=== PATIENT | female | born 1965 | race Caucasian/White ===

== ENCOUNTER 2024-09-20 07:31 | Inpatient (IN) | payer MEDICARE ==
[2024-09-20] MEDS ORDERED: Sodium Chloride 0.9% 10 ML Syringe FLUSH PRN (08:33)
[2024-09-20] MEDS: Lactated Ringers 1,000 ML IV SCH (08:43)
[2024-09-20] MEDS: Morphine 4 MG/ML VIAL IVPUSH ONE (08:47)
[2024-09-20] MEDS: Ondansetron 4 MG Tab.DIS PO ONE (08:49)
[2024-09-20 09:04] LABS: BASOPHILS ABSOLUTE AUTO 0.14 K/uL (0.02-0.10); BASOPHILS PERCENT AUTO 0.9 % (0.0-0.5); EOSINOPHILS ABSOLUTE AUTO 0.03 K/uL (0.04-0.40); EOSINOPHILS PERCENT AUTO 0.2 % (1.0-5.0); HEMATOCRIT 38.3 % (37.0-47.0); HEMOGLOBIN 12.7 g/dL (11.5-16.5); LYMPHOCYTES ABSOLUTE AUTO 1.61 K/uL (1.50-4.00); LYMPHOCYTES PERCENT AUTO 9.8 % (20.0-40.0); MEAN CORPUSCULAR HEMOGLOBIN 29.9 pg (27.0-32.0); MEAN CORPUSCULAR HGB CONC 33.2 g/dL (31.0-35.0); MEAN CORPUSCULAR VOLUME 90 fL (76-96); MONOCYTES ABSOLUTE AUTO 1.28 K/uL (0.20-0.80); MONOCYTES PERCENT AUTO 7.8 % (3.0-10.0); NEUTROPHILS ABSOLUTE AUTO 13.33 K/uL (2.00-7.50); NEUTROPHILS PERCENT AUTO 81.3 % (45.0-70.0); PLATELET COUNT,PLT 364 K/uL (150-500); RED BLOOD CELL COUNT 4.25 M/uL (3.80-5.80); RED CELL DISTRIBUTION WIDTH 13.3 % (11.0-16.0); WHITE BLOOD CELL COUNT,WBC 16.4 K/uL (4.0-11.0)
[2024-09-20 09:11] LABS: A/G RATIO 0.6 (0.8-2.0); ALBUMIN 2.9 g/dL (3.4-5.0); BUN/CREATININE RATIO 21.8 (6-25); CARBON DIOXIDE,CO2 30.1 mmol/L (21.0-32.0); CREATININE 1.01 mg/dL (0.55-1.02); EST CRCL DRUG DOSING (CG) 51.79 mL/min; POTASSIUM,K 5.5 mmol/L (3.5-5.1); PROTEIN TOTAL,TP 7.5 g/dL (6.4-8.2)
[2024-09-20 09:18] LABS: ANION GAP 13.4 mmol/L (5.0-15.0)
[2024-09-20 09:48] LABS: APPEARANCE,URINE CLEAR (CLEAR); COLOR,URINE YELLOW; PH,URINE 6.5 (5.0-8.0)
[2024-09-20 09:49] LABS: BILIRUBIN,URINE NEGATIVE (NEGATIVE); GLUCOSE,URINE >=1000 mg/dL (NEGATIVE); KETONES,URINE NEGATIVE (NEGATIVE); LEUKOCYTE ESTERASE,URINE NEGATIVE (NEGATIVE); NITRITE,URINE NEGATIVE (NEGATIVE); OCCULT BLOOD,URINE TRACE-INTACT (NEGATIVE); PROTEIN,URINE NEGATIVE (NEGATIVE)
[2024-09-20 09:50] LABS: RBC,URINE 0-5 /HPF; SQUAMOUS EPITHELIAL CELLS,UR FEW /HPF
[2024-09-20 09:53] LABS: HEMOGLOBIN A1C 13.2 % (< 5.7)
[2024-09-20 10:05] LABS: BILIRUBIN TOTAL 0.5 mg/dL (0.0-1.0)
[2024-09-20] MEDS: Insulin Regular, Human 100 Units/ML 3 ML Vial SUBCUT ONE (10:14)
[2024-09-20] MEDS: cefTRIAXone 1 GM Vial ONE (10:52)
[2024-09-20] MEDS: cefTRIAXone 1 GM in Sodium Chloride 0.9% 50 ML IV SCH (10:54)
[2024-09-20] MEDS ORDERED: Melatonin 3 MG Tab PO PRN (11:03)
[2024-09-20] MEDS ORDERED: Non-Formulary Medication 1 Each (Albuterol Sulfate [Proair Respiclick] 90 MCG Aer.Pow.Ba) IH PRN (11:26)
[2024-09-20] MEDS ORDERED: Glucagon,Human Recombinant 1 MG Vial IM PRN (16:47)
[2024-09-20] MEDS ORDERED: 50% Dextrose in Water 50 ML Syringe IVPUSH PRN (16:47)
[2024-09-20] MEDS: Insulin Regular, Human 100 Units/ML 3 ML Vial SUBCUT SCH (17:02)
[2024-09-20] MEDS: Acetaminophen 325 MG Tab PO PRN (17:14)
[2024-09-20] MEDS: Ondansetron 4 MG/2 ML SDV IV PRN (17:14)
[2024-09-20] MEDS ORDERED: Albuterol 6.7 GM Inhaler INH PRN (17:34)
[2024-09-20] MEDS: Acetaminophen 325 MG Tab ONE (18:43)
[2024-09-20] MEDS: Lactated Ringers 1,000 ML IV ONE (18:55)
[2024-09-20] MEDS: metroNIDAZOLE/Normal Saline 500 MG in Premix Bag 1 BAG IV SCH (19:09)
[2024-09-20] MEDS: Sertraline 50 MG Tab PO SCH (19:31)
[2024-09-20] MEDS: Formoterol/Mometasone 100-5 MCG 8.8 GM Inhaler INH SCH (19:31)
[2024-09-21] MEDS: Sodium Chloride 0.9% 1,000 ML IV SCH (00:06)
[2024-09-21 08:43] LABS: HEMATOCRIT 36.9 % (37.0-47.0); HEMOGLOBIN 12.3 g/dL (11.5-16.5); MEAN CORPUSCULAR HEMOGLOBIN 29.7 pg (27.0-32.0); MEAN CORPUSCULAR HGB CONC 33.3 g/dL (31.0-35.0); MEAN PLATELET VOLUME 9.9 fL (6.0-10.0); RED BLOOD CELL COUNT 4.14 M/uL (3.80-5.80); RED CELL DISTRIBUTION WIDTH 13.4 % (11.0-16.0)
[2024-09-21 08:50] LABS: WHITE BLOOD CELL COUNT,WBC 20.2 K/uL (4.0-11.0)
[2024-09-21 09:14] LABS: A/G RATIO 0.6 (0.8-2.0); ALBUMIN 2.4 g/dL (3.4-5.0); BILIRUBIN TOTAL 0.9 mg/dL (0.0-1.0); BUN/CREATININE RATIO 28.8 (6-25); C-REACTIVE PROTEIN 65.9 mg/L (<5.0); CALCIUM 8.2 mg/dL (8.5-10.1); CREATININE 0.8 mg/dL (0.55-1.02); EST CRCL DRUG DOSING (CG) 65.38 mL/min; MAGNESIUM 1.6 mg/dL (1.8-2.4); POTASSIUM,K 4.6 mmol/L (3.5-5.1); PROTEIN TOTAL,TP 6.2 g/dL (6.4-8.2)
[2024-09-21] MEDS: Bisacodyl 5 MG Tab PO SCH (09:14)
[2024-09-21] MEDS: Polyethylene Glycol 3350 Powder 17 GM Packet PO SCH (09:14)
[2024-09-21 09:26] LABS: ANION GAP 13.6 mmol/L (5.0-15.0)
[2024-09-21] MEDS: Ciprofloxacin in D5W 400 MG in Premix Bag 1 BAG IV ONE (10:53)
[2024-09-21] MEDS: Ciprofloxacin in D5W 200 ML ONE (11:23)
[2024-09-21] MEDS: Prochlorperazine 10 MG/2 ML SDV IVPUSH ONE (11:28)
== END 2024-09-21 12:17 | DRG 638 ==
LOC: LB.ED 07:31 → LB.MS 11:04
PROVIDERS: ADMIT Surgery; ATTEND Surgery
DX: E11.65 Type 2 diabetes mellitus with hyperglycemia (principal); K81.0 Acute cholecystitis; L03.312 Cellulitis of back [any part except buttock and flank]; Z90.710 Acquired absence of both cervix and uterus; Z88.8 Allergy status to other drugs, medicaments and biological substances; Z91.018 Allergy to other foods; Z79.51 Long term (current) use of inhaled steroids; Z79.899 Other long term (current) drug therapy
CPT/HCPCS: 36415; 74177; 80053; 81001; 82947; 83036; 83690; 83735; 85025; 85027; 86140; 96374; 99222; 99239; 99285-25; A9270-GY; J0696; J0744; J0780; J1836; J2270; J2405; J3490; J7030; J7120; Q0162; U0002

== ENCOUNTER 2024-10-15 17:42 | Emergency (ER) | payer MEDICARE ==
[2024-10-15] MEDS: Sodium Chloride 0.9% 1,000 ML IV ONE (19:25)
[2024-10-15] MEDS ORDERED: Naloxone 2 MG/2 ML Syringe IVPUSH PRN (19:32)
[2024-10-15] MEDS: Ondansetron 4 MG/2 ML SDV IVPUSH ONE (19:32)
[2024-10-15] MEDS: fentaNYL 100 MCG/2 ML SDV IVPUSH PRN (19:36)
[2024-10-15 19:53] LABS: BASOPHILS ABSOLUTE AUTO 0.06 K/uL (0.02-0.10); BASOPHILS PERCENT AUTO 0.7 % (0.0-0.5); EOSINOPHILS ABSOLUTE AUTO 0.11 K/uL (0.04-0.40); EOSINOPHILS PERCENT AUTO 1.2 % (1.0-5.0); HEMATOCRIT 40.6 % (37.0-47.0); LYMPHOCYTES ABSOLUTE AUTO 3.33 K/uL (1.50-4.00); LYMPHOCYTES PERCENT AUTO 37.6 % (20.0-40.0); MEAN CORPUSCULAR HEMOGLOBIN 28.4 pg (27.0-32.0); MEAN CORPUSCULAR VOLUME 89 fL (76-96); MEAN PLATELET VOLUME 9.8 fL (6.0-10.0); MONOCYTES ABSOLUTE AUTO 0.64 K/uL (0.20-0.80); MONOCYTES PERCENT AUTO 7.2 % (3.0-10.0); NEUTROPHILS ABSOLUTE AUTO 4.72 K/uL (2.00-7.50); NEUTROPHILS PERCENT AUTO 53.3 % (45.0-70.0); PLATELET COUNT,PLT 297 K/uL (150-500); RED BLOOD CELL COUNT 4.57 M/uL (3.80-5.80); RED CELL DISTRIBUTION WIDTH 15.7 % (11.0-16.0); WHITE BLOOD CELL COUNT,WBC 8.9 K/uL (4.0-11.0)
[2024-10-15] MEDS: fentaNYL 100 MCG/2 ML SDV ONE (19:55)
[2024-10-15 20:12] LABS: INR 1.2 (1.0-3.5); PTT,PARTIAL THROMBOPLSTIN TIME 21.9 SECONDS (24.4-33.2)
[2024-10-15 20:13] LABS: A/G RATIO 0.7 (0.8-2.0); ANION GAP 12.6 mmol/L (5.0-15.0); BILIRUBIN TOTAL 0.4 mg/dL (0.0-1.0); BUN/CREATININE RATIO 25.7 (6-25); CALCIUM 8.9 mg/dL (8.5-10.1); CARBON DIOXIDE,CO2 28.1 mmol/L (21.0-32.0); CREATININE 0.74 mg/dL (0.55-1.02); EST CRCL DRUG DOSING (CG) 70.68 mL/min; POTASSIUM,K 4.7 mmol/L (3.5-5.1); PROTEIN TOTAL,TP 7.6 g/dL (6.4-8.2); PROTHROMBIN TIME 12.1 sec (9.0-11.5)
[2024-10-15 20:16] LABS: MAGNESIUM 1.8 mg/dL (1.8-2.4); TROPONIN I HIGH SENSITIVITY 15.3 pg/ml (<=60.4)
[2024-10-15 20:26] LABS: INFLUENZA A NAA NEGATIVE (NEGATIVE); INFLUENZA B NAA NEGATIVE (NEGATIVE); RESPIRATORY SYNCYTIAL VIR NAA NEGATIVE (NEGATIVE)
[2024-10-15 20:28] LABS: CORONAVIRUS COVID-19 NAA POSITIVE (NEGATIVE)
[2024-10-15] MEDS ORDERED: Sodium Chloride 0.9% 10 ML Syringe FLUSH PRN (20:35)
[2024-10-15] MEDS ORDERED: Ondansetron 4 MG Tab.DIS ONE (21:00)
[2024-10-15] MEDS ORDERED: Magnesium Citrate Solution 296 ML Bottle ONE (21:00)
[2024-10-15] MEDS: Magnesium Citrate Solution 296 ML Bottle ONE (21:49)
== END 2024-10-15 21:33 | disposition home or self-care (01) ==
LOC: LB.ED 17:42
DX: U07.1 COVID-19 (principal); R10.11 Right upper quadrant pain; K59.00 Constipation, unspecified; I10 Essential (primary) hypertension; J45.909 Unspecified asthma, uncomplicated; E78.00 Pure hypercholesterolemia, unspecified; E11.9 Type 2 diabetes mellitus without complications; Z90.710 Acquired absence of both cervix and uterus; Z88.8 Allergy status to other drugs, medicaments and biological substances; Z79.51 Long term (current) use of inhaled steroids; Z79.899 Other long term (current) drug therapy
CPT/HCPCS: 0241U; 36415; 71250; 74176; 80053; 83605; 83690; 83735; 84484; 85025; 85610; 85730; 93005; 96361; 96374; 96375; 99285; A9270; J2405; J3010; J7030; Q0162; 93010; 99284

== ENCOUNTER 2024-11-19 11:38 | Emergency (ER) | payer MEDICARE ==
[2024-11-19] MEDS: Ketorolac 15 MG/ML SDV IVPUSH ONE (13:19)
[2024-11-19 13:22] LABS: BASOPHILS ABSOLUTE AUTO 0.11 K/uL (0.02-0.10); EOSINOPHILS ABSOLUTE AUTO 0.13 K/uL (0.04-0.40); EOSINOPHILS PERCENT AUTO 1.2 % (1.0-5.0); HEMATOCRIT 39.1 % (37.0-47.0); HEMOGLOBIN 12.3 g/dL (11.5-16.5); LYMPHOCYTES ABSOLUTE AUTO 2.09 K/uL (1.50-4.00); LYMPHOCYTES PERCENT AUTO 19.6 % (20.0-40.0); MEAN CORPUSCULAR HEMOGLOBIN 26.2 pg (27.0-32.0); MEAN CORPUSCULAR HGB CONC 31.5 g/dL (31.0-35.0); MEAN CORPUSCULAR VOLUME 83 fL (76-96); MONOCYTES ABSOLUTE AUTO 0.75 K/uL (0.20-0.80); NEUTROPHILS ABSOLUTE AUTO 7.59 K/uL (2.00-7.50); NEUTROPHILS PERCENT AUTO 71.2 % (45.0-70.0); PLATELET COUNT,PLT 264 K/uL (150-500); RED BLOOD CELL COUNT 4.69 M/uL (3.80-5.80); RED CELL DISTRIBUTION WIDTH 15.6 % (11.0-16.0); WHITE BLOOD CELL COUNT,WBC 10.7 K/uL (4.0-11.0)
[2024-11-19] MEDS: Furosemide 40 MG/4 ML VIAL IVPUSH ONE ×2 (13:23→16:45)
[2024-11-19 13:31] LABS: ANION GAP 12.5 mmol/L (5.0-15.0); BLOOD UREA NITROGEN,BUN 20 mg/dL (8-26); BUN/CREATININE RATIO 22.7 (6-25); CALCIUM 9.1 mg/dL (8.5-10.1); CARBON DIOXIDE,CO2 30.2 mmol/L (21.0-32.0); CHLORIDE,CL 98 mmol/L (98-107); CREATININE 0.88 mg/dL (0.55-1.02); ESTIMATED GFR 76 mL/min (>60); GLUCOSE RANDOM 247 mg/dL (74-100); POTASSIUM,K 3.7 mmol/L (3.5-5.1); SODIUM,NA 137 mmol/L (136-145)
[2024-11-19] MEDS: Furosemide 20 MG/2 ML VIAL IVPUSH ONE (14:12)
== END 2024-11-19 18:33 | disposition home or self-care (01) ==
LOC: LB.ED 11:38
DX: I11.0 Hypertensive heart disease with heart failure (principal); I50.9 Heart failure, unspecified; E78.00 Pure hypercholesterolemia, unspecified; J44.89 Other specified chronic obstructive pulmonary disease; E11.9 Type 2 diabetes mellitus without complications; Z90.49 Acquired absence of other specified parts of digestive tract; Z90.710 Acquired absence of both cervix and uterus; F17.210 Nicotine dependence, cigarettes, uncomplicated; Z79.899 Other long term (current) drug therapy; Z91.018 Allergy to other foods; Z88.0 Allergy status to penicillin
CPT/HCPCS: 36415; 71045; 80048; 83880; 85025; 96374; 96375; 96376; 99285; J1885; J1940; 99284

== ENCOUNTER 2024-12-01 11:51 | Emergency (ER) | payer MEDICARE ==
[2024-12-01] MEDS ORDERED: Sodium Chloride 0.9% 50 ML SDV FLUSH ONE (14:24)
[2024-12-01] MEDS ORDERED: Iopamidol 612 MG/ML 100 ML Bottle IV SCH (14:30)
[2024-12-01 14:47] LABS: A/G RATIO 0.8 (0.8-2.0); ALBUMIN 3.4 g/dL (3.4-5.0); ANION GAP 12.6 mmol/L (5.0-15.0); BILIRUBIN TOTAL 0.6 mg/dL (0.0-1.0); BUN/CREATININE RATIO 21.3 (6-25); CALCIUM 8.5 mg/dL (8.5-10.1); CARBON DIOXIDE,CO2 30.8 mmol/L (21.0-32.0); CREATININE 0.75 mg/dL (0.55-1.02); EST CRCL DRUG DOSING (CG) 69.74 mL/min; POTASSIUM,K 3.4 mmol/L (3.5-5.1); PROTEIN TOTAL,TP 7.7 g/dL (6.4-8.2)
[2024-12-01 14:51] LABS: BASOPHILS PERCENT AUTO 0.8 % (0.0-0.5); EOSINOPHILS ABSOLUTE AUTO 0.16 K/uL (0.04-0.40); EOSINOPHILS PERCENT AUTO 1.4 % (1.0-5.0); HEMATOCRIT 40.7 % (37.0-47.0); HEMOGLOBIN 12.6 g/dL (11.5-16.5); LYMPHOCYTES PERCENT AUTO 21.1 % (20.0-40.0); MEAN CORPUSCULAR HEMOGLOBIN 25.3 pg (27.0-32.0); MEAN CORPUSCULAR VOLUME 82 fL (76-96); MONOCYTES ABSOLUTE AUTO 0.67 K/uL (0.20-0.80); MONOCYTES PERCENT AUTO 5.7 % (3.0-10.0); NEUTROPHILS ABSOLUTE AUTO 8.42 K/uL (2.00-7.50); PLATELET COUNT,PLT 250 K/uL (150-500); RED BLOOD CELL COUNT 4.99 M/uL (3.80-5.80); RED CELL DISTRIBUTION WIDTH 16.5 % (11.0-16.0); WHITE BLOOD CELL COUNT,WBC 11.9 K/uL (4.0-11.0)
[2024-12-01 15:02] LABS: INFLUENZA A NAA NEGATIVE (NEGATIVE); INFLUENZA B NAA NEGATIVE (NEGATIVE); RESPIRATORY SYNCYTIAL VIR NAA NEGATIVE (NEGATIVE)
[2024-12-01 15:05] LABS: CORONAVIRUS COVID-19 NAA NEGATIVE (NEGATIVE)
== END 2024-12-01 17:07 | disposition home or self-care (01) ==
LOC: LB.ED 11:51
DX: R18.8 Other ascites (principal); I11.0 Hypertensive heart disease with heart failure; I50.9 Heart failure, unspecified; E78.00 Pure hypercholesterolemia, unspecified; I25.2 Old myocardial infarction; E11.9 Type 2 diabetes mellitus without complications; Z87.891 Personal history of nicotine dependence; Z79.899 Other long term (current) drug therapy; Z90.710 Acquired absence of both cervix and uterus; Z91.018 Allergy to other foods; Z88.8 Allergy status to other drugs, medicaments and biological substances
CPT/HCPCS: 0241U; 36415; 71046; 74176; 80053; 82140; 83880; 85025; 99284

== ENCOUNTER 2025-05-11 12:52 | Emergency (ER) | payer MEDICARE | END 2025-05-11 15:40 | disposition home or self-care (01) | LOC: LB.ED 12:52 | DX: S20.211A Contusion of right front wall of thorax, initial encounter (principal); S99.921A Unspecified injury of right foot, initial encounter; I11.0 Hypertensive heart disease with heart failure; I50.9 Heart failure, unspecified; E78.00 Pure hypercholesterolemia, unspecified; E11.9 Type 2 diabetes mellitus without complications; J45.909 Unspecified asthma, uncomplicated; Z91.018 Allergy to other foods; Z88.8 Allergy status to other drugs, medicaments and biological substances; Z79.51 Long term (current) use of inhaled steroids; Z79.899 Other long term (current) drug therapy; Z79.84 Long term (current) use of oral hypoglycemic drugs; Z79.4 Long term (current) use of insulin; Z90.49 Acquired absence of other specified parts of digestive tract; Z90.710 Acquired absence of both cervix and uterus; W18.39XA Other fall on same level, initial encounter; Y93.89 Activity, other specified | CPT/HCPCS: 71250; 73630-RT; 99283; 99284 ==

== ENCOUNTER 2025-05-19 12:47 | Inpatient (IN) | payer MEDICARE ==
[2025-05-19] MEDS ORDERED: Sodium Chloride 0.9% 10 ML Syringe FLUSH PRN (13:17)
[2025-05-19] MEDS: Sodium Chloride 0.9% 1,000 ML IV ONE (13:25)
[2025-05-19] MEDS: Ondansetron 4 MG/2 ML SDV IVPUSH PRN (13:29)
[2025-05-19 13:31] LABS: BASOPHILS ABSOLUTE AUTO 0.04 K/uL (0.02-0.10); BASOPHILS PERCENT AUTO 0.4 % (0.0-0.5); EOSINOPHILS ABSOLUTE AUTO 0.03 K/uL (0.04-0.40); EOSINOPHILS PERCENT AUTO 0.3 % (1.0-5.0); HEMATOCRIT 42.2 % (37.0-47.0); HEMOGLOBIN 14.8 g/dL (11.5-16.5); LYMPHOCYTES ABSOLUTE AUTO 2.42 K/uL (1.50-4.00); LYMPHOCYTES PERCENT AUTO 22.6 % (20.0-40.0); MEAN CORPUSCULAR HEMOGLOBIN 31.1 pg (27.0-32.0); MEAN CORPUSCULAR HGB CONC 35.1 g/dL (31.0-35.0); MEAN CORPUSCULAR VOLUME 89 fL (76-96); MEAN PLATELET VOLUME 9.6 fL (6.0-10.0); MONOCYTES ABSOLUTE AUTO 0.77 K/uL (0.20-0.80); MONOCYTES PERCENT AUTO 7.2 % (3.0-10.0); NEUTROPHILS ABSOLUTE AUTO 7.47 K/uL (2.00-7.50); NEUTROPHILS PERCENT AUTO 69.5 % (45.0-70.0); PLATELET COUNT,PLT 280 K/uL (150-500); RED BLOOD CELL COUNT 4.76 M/uL (3.80-5.80); WHITE BLOOD CELL COUNT,WBC 10.7 K/uL (4.0-11.0)
[2025-05-19 13:41] LABS: ALBUMIN 3.9 g/dL (3.4-5.0); ANION GAP 14.4 mmol/L (5.0-15.0); BILIRUBIN TOTAL 0.8 mg/dL (0.0-1.0); BUN/CREATININE RATIO 32.9 (6-25); CALCIUM 9.4 mg/dL (8.5-10.1); CARBON DIOXIDE,CO2 29.2 mmol/L (21.0-32.0); CREATININE 0.73 mg/dL (0.55-1.02); EST CRCL DRUG DOSING (CG) 66.11 mL/min; POTASSIUM,K 3.6 mmol/L (3.5-5.1)
[2025-05-19] MEDS: Prochlorperazine 10 MG/2 ML SDV IVPUSH ONE (14:18)
[2025-05-19 14:25] LABS: INFLUENZA A NAA NEGATIVE (NEGATIVE); INFLUENZA B NAA NEGATIVE (NEGATIVE); RESPIRATORY SYNCYTIAL VIR NAA NEGATIVE (NEGATIVE)
[2025-05-19] MEDS: Sodium Chloride 0.9% 1,000 ML IV SCH (14:27)
[2025-05-19] MEDS ORDERED: Sodium Chloride 0.9% 1,000 ML IV SCH (14:30)
[2025-05-19 14:40] LABS: CORONAVIRUS COVID-19 NAA NEGATIVE (NEGATIVE)
[2025-05-19] MEDS: Aspirin 81 MG Tab.Chew PO ONE (15:13)
[2025-05-19] MEDS: Nitroglycerin 0.4 MG Tab.SL SL ONE (15:13)
[2025-05-19 15:49] LABS: INR 1.1 (1.0-3.5)
[2025-05-19 15:50] LABS: PROTHROMBIN TIME 11.9 sec (9.0-11.5)
[2025-05-19] MEDS: Heparin Sodium 5,000 Units/ML Vial IVPUSH ONE ×2 (15:54→23:00)
[2025-05-19] MEDS: Heparin Sodium/D5W 25,000 UNITS/500 ML BAG IV SCH (15:56)
[2025-05-19] MEDS: Nitroglycerin/D5W 25 MG/250 ML BOTTLE IV SCH (16:02)
[2025-05-19 17:25] LABS: APPEARANCE,URINE CLOUDY (CLEAR); BILIRUBIN,URINE NEGATIVE (NEGATIVE); COLOR,URINE YELLOW; GLUCOSE,URINE NEGATIVE (NEGATIVE); KETONES,URINE 15 mg/dL (NEGATIVE); LEUKOCYTE ESTERASE,URINE SMALL (NEGATIVE); NITRITE,URINE NEGATIVE (NEGATIVE); OCCULT BLOOD,URINE NEGATIVE (NEGATIVE); PH,URINE 6.5 (5.0-8.0); PROTEIN,URINE 100 mg/dL (NEGATIVE)
[2025-05-19 17:33] LABS: BACTERIA,URINE MANY /HPF; RBC,URINE 0-5 /HPF; SQUAMOUS EPITHELIAL CELLS,UR OCCASIONAL /HPF; WBC,URINE 20-30 /HPF
[2025-05-19 17:34] LABS: AMORPHOUS SEDIMENT,URINE MANY /HPF
[2025-05-19] MEDS ORDERED: HYDROmorphone 1 MG/ML Syringe IM PRN (18:02)
[2025-05-19] MEDS ORDERED: Ondansetron 4 MG/2 ML SDV IVPUSH PRN (18:12)
[2025-05-19] MEDS: HYDROmorphone 1 MG/ML Syringe IVPUSH PRN ×2 (18:22→22:18)
[2025-05-19] MEDS ORDERED: 50% Dextrose in Water 50 ML Syringe IVPUSH PRN (18:34)
[2025-05-19] MEDS ORDERED: Glucagon,Human Recombinant 1 MG Vial IM PRN (18:34)
[2025-05-19] MEDS ORDERED: Apixaban 5 MG Tab PO SCH (20:00)
[2025-05-19] MEDS: Sertraline 50 MG Tab PO SCH (21:07)
[2025-05-19] MEDS: Sulfamethoxazole/Trimethoprim 800-160 MG Tab PO SCH (21:08)
[2025-05-19] MEDS: metFORMIN 1,000 MG Tab PO SCH (21:08)
[2025-05-19] MEDS: Rosuvastatin 20 MG Tab PO SCH (21:09)
[2025-05-19] MEDS: Gabapentin 300 MG Cap PO SCH (21:09)
[2025-05-19] MEDS: Formoterol/Mometasone 100-5 MCG 8.8 GM Inhaler INH SCH (21:12)
[2025-05-19] MEDS: Insulin Glargine,Human Rec. Analog 100 Units/ML 3 ML Pen SUBCUT SCH (21:12)
[2025-05-20] MEDS: Sodium Chloride 0.9% 500 ML IV ONE (01:10)
[2025-05-20] MEDS: Heparin Sodium 5,000 Units/ML Vial IVPUSH ONE (05:48)
[2025-05-20] MEDS: Bumetanide 1 MG Tab PO SCH (08:05)
[2025-05-20] MEDS: Losartan 25 MG Tab PO SCH (08:06)
[2025-05-20] MEDS: HYDROmorphone 1 MG/ML Syringe IVPUSH PRN (08:15)
[2025-05-20 08:40] LABS: ANION GAP 6.6 mmol/L (5.0-15.0); BUN/CREATININE RATIO 35.6 (6-25); CALCIUM 8.1 mg/dL (8.5-10.1); CREATININE 0.59 mg/dL (0.55-1.02); EST CRCL DRUG DOSING (CG) 81.8 mL/min; POTASSIUM,K 3.6 mmol/L (3.5-5.1)
[2025-05-20 08:41] LABS: TROPONIN I HIGH SENSITIVITY 105.3 pg/ml (<=60.4)
[2025-05-20] MEDS: oxyCODONE 5 MG Tab PO PRN (16:19)
[2025-05-20] MEDS: HYDROmorphone 2 MG/ML Syringe IVPUSH PRN (22:00)
[2025-05-21] MEDS: Apixaban 5 MG Tab PO SCH (07:58)
== END 2025-05-21 13:05 | disposition home or self-care (01) | DRG 313 ==
LOC: LB.ED 12:47 → UNDOADMIN 17:57 → LB.MS 17:57 → UNDOADMIN 18:00 → LB.MS 18:00
PROVIDERS: ADMIT Surgery; ATTEND Surgery
DX: R07.9 Chest pain, unspecified (principal); N39.0 Urinary tract infection, site not specified; E11.9 Type 2 diabetes mellitus without complications; I50.9 Heart failure, unspecified; I25.10 Atherosclerotic heart disease of native coronary artery without angina pectoris; F32.A Depression, unspecified; M54.9 Dorsalgia, unspecified; Z72.0 Tobacco use; G89.29 Other chronic pain; E86.0 Dehydration; Z79.4 Long term (current) use of insulin; Z90.49 Acquired absence of other specified parts of digestive tract; I25.2 Old myocardial infarction; Z90.710 Acquired absence of both cervix and uterus; Z88.8 Allergy status to other drugs, medicaments and biological substances; Z79.84 Long term (current) use of oral hypoglycemic drugs; Z79.01 Long term (current) use of anticoagulants; Z79.899 Other long term (current) drug therapy
CPT/HCPCS: 0241U; 36415; 71045; 80048; 80053; 81001; 82947; 84484; 85025; 85610; 85730; 87086; 93005; 96361; 96374; 96375; 99222; 99231; 99238; 99285-25; A9270-GY; J0780; J1171; J1644; J1815-GY; J2305; J2405; J7030; J7040

== ENCOUNTER 2025-05-22 14:08 | Emergency (ER) | payer MEDICARE ==
[2025-05-22] MEDS: Sodium Chloride 0.9% 1,000 ML IV SCH ×2 (14:20→15:56)
[2025-05-22] MEDS: Ondansetron 4 MG/2 ML SDV IVPUSH ONE ×2 (14:20→14:35)
[2025-05-22] MEDS ORDERED: Sodium Chloride 0.9% 10 ML Syringe FLUSH PRN (14:32)
[2025-05-22] MEDS: Nitroglycerin/D5W 25 MG/250 ML BOTTLE IV SCH (14:56)
[2025-05-22 14:58] LABS: BASOPHILS ABSOLUTE AUTO 0.08 K/uL (0.02-0.10); BASOPHILS PERCENT AUTO 0.6 % (0.0-0.5); EOSINOPHILS ABSOLUTE AUTO 0.27 K/uL (0.04-0.40); EOSINOPHILS PERCENT AUTO 1.9 % (1.0-5.0); HEMATOCRIT 41.4 % (37.0-47.0); HEMOGLOBIN 14.6 g/dL (11.5-16.5); LYMPHOCYTES ABSOLUTE AUTO 2.07 K/uL (1.50-4.00); LYMPHOCYTES PERCENT AUTO 14.6 % (20.0-40.0); MEAN CORPUSCULAR HEMOGLOBIN 31.5 pg (27.0-32.0); MEAN CORPUSCULAR HGB CONC 35.3 g/dL (31.0-35.0); MEAN CORPUSCULAR VOLUME 89 fL (76-96); MEAN PLATELET VOLUME 9.8 fL (6.0-10.0); MONOCYTES ABSOLUTE AUTO 0.69 K/uL (0.20-0.80); MONOCYTES PERCENT AUTO 4.9 % (3.0-10.0); PLATELET COUNT,PLT 327 K/uL (150-500); RED BLOOD CELL COUNT 4.64 M/uL (3.80-5.80); RED CELL DISTRIBUTION WIDTH 12.7 % (11.0-16.0); WHITE BLOOD CELL COUNT,WBC 14.2 K/uL (4.0-11.0)
[2025-05-22 15:11] LABS: A/G RATIO 1.1 (0.8-2.0); ALBUMIN 4.3 g/dL (3.4-5.0); BILIRUBIN TOTAL 0.6 mg/dL (0.0-1.0); BUN/CREATININE RATIO 19.5 (6-25); CALCIUM 9.9 mg/dL (8.5-10.1); CARBON DIOXIDE,CO2 25.1 mmol/L (21.0-32.0); CREATININE 0.87 mg/dL (0.55-1.02); EST CRCL DRUG DOSING (CG) 59.38 mL/min; POTASSIUM,K 4.1 mmol/L (3.5-5.1); PROTEIN TOTAL,TP 8.3 g/dL (6.4-8.2); TROPONIN I HIGH SENSITIVITY 32.2 pg/ml (<=60.4)
[2025-05-22] MEDS: Iopamidol 755 Mg/ML 100 ML Bottle IV SCH (15:39)
[2025-05-22] MEDS: Sodium Chloride 0.9% 50 ML SDV FLUSH ONE (15:39)
[2025-05-22] MEDS: Cefepime 2 GM in Sodium Chloride 0.9% 50 ML IV ONE (15:56)
[2025-05-22] MEDS: HYDROmorphone 2 MG/ML Syringe IVPUSH ONE (15:59)
[2025-05-22 16:11] LABS: APPEARANCE,URINE CLEAR (CLEAR); BILIRUBIN,URINE NEGATIVE (NEGATIVE); COLOR,URINE YELLOW; GLUCOSE,URINE NEGATIVE (NEGATIVE); KETONES,URINE 15 mg/dL (NEGATIVE); LEUKOCYTE ESTERASE,URINE NEGATIVE (NEGATIVE); NITRITE,URINE NEGATIVE (NEGATIVE); OCCULT BLOOD,URINE NEGATIVE (NEGATIVE); PH,URINE 7.5 (5.0-8.0); PROTEIN,URINE 30 mg/dL (NEGATIVE)
[2025-05-22 16:16] LABS: RBC,URINE 0-5 /HPF
[2025-05-22 16:18] LABS: EPITHELIAL CELLS,URINE MODERATE /HPF; WBC,URINE 0-5 /HPF
[2025-05-22] MEDS: Heparin Sodium/D5W 25,000 UNITS/500 ML BAG IV SCH (17:40)
[2025-05-22] MEDS: Heparin Sodium 5,000 Units/ML Vial IVPUSH ONE (17:42)
[2025-05-22 17:47] LABS: INR 1.1 (1.0-3.5)
[2025-05-22 17:51] LABS: PROTHROMBIN TIME 11.5 sec (9.0-11.5)
[2025-05-22] MEDS: Clopidogrel 75 MG Tab PO ONE (18:40)
== END 2025-05-22 19:31 ==
LOC: LB.ED 14:08
DX: I21.4 Non-ST elevation (NSTEMI) myocardial infarction (principal); I11.0 Hypertensive heart disease with heart failure; I50.9 Heart failure, unspecified; I25.2 Old myocardial infarction; E78.00 Pure hypercholesterolemia, unspecified; J45.909 Unspecified asthma, uncomplicated; E11.9 Type 2 diabetes mellitus without complications; F17.210 Nicotine dependence, cigarettes, uncomplicated; Z91.018 Allergy to other foods; Z88.8 Allergy status to other drugs, medicaments and biological substances; Z79.51 Long term (current) use of inhaled steroids; Z79.01 Long term (current) use of anticoagulants; Z79.899 Other long term (current) drug therapy; Z90.49 Acquired absence of other specified parts of digestive tract
CPT/HCPCS: 36415; 71260; 74177; 80053; 81001; 83605; 83690; 83880; 84484; 85025; 85379; 85610; 85730; 87040; 93005; 93010; 96361; 96365; 96366; 96368; 96375; 99285; 99285-25; A0425; A0428; A9270-GY; J0692; J1171; J1644; J2305; J2405; J7030; Q9967

== ENCOUNTER 2025-07-09 14:38 | Emergency (ER) | payer MEDICARE ==
[2025-07-09] MEDS: Ondansetron 4 MG/2 ML SDV IVPUSH ONE ×2 (15:08→16:01)
[2025-07-09] MEDS ORDERED: Sodium Chloride 0.9% 10 ML Syringe FLUSH PRN (15:08)
[2025-07-09] MEDS: Ketorolac 15 MG/ML SDV ONE (15:09)
[2025-07-09] MEDS: Ketorolac 30 MG/ML SDV IVPUSH ONE (15:17)
[2025-07-09] MEDS: Ondansetron 4 MG/2 ML SDV ONE (15:17)
[2025-07-09 15:45] LABS: BASOPHILS ABSOLUTE AUTO 0.08 K/uL (0.02-0.10); BASOPHILS PERCENT AUTO 0.6 % (0.0-0.5); EOSINOPHILS ABSOLUTE AUTO 0.08 K/uL (0.04-0.40); EOSINOPHILS PERCENT AUTO 0.6 % (1.0-5.0); LYMPHOCYTES ABSOLUTE AUTO 1.54 K/uL (1.50-4.00); LYMPHOCYTES PERCENT AUTO 11.6 % (20.0-40.0); MEAN PLATELET VOLUME 10.1 fL (6.0-10.0); MONOCYTES ABSOLUTE AUTO 0.43 K/uL (0.20-0.80); MONOCYTES PERCENT AUTO 3.2 % (3.0-10.0); NEUTROPHILS ABSOLUTE AUTO 11.17 K/uL (2.00-7.50); NEUTROPHILS PERCENT AUTO 84.0 % (45.0-70.0); PLATELET COUNT,PLT 271 K/uL (150-500); RED BLOOD CELL COUNT 4.51 M/uL (3.80-5.80); RED CELL DISTRIBUTION WIDTH 12.5 % (11.0-16.0); WHITE BLOOD CELL COUNT,WBC 13.3 K/uL (4.0-11.0)
[2025-07-09 15:50] LABS: A/G RATIO 0.9 (0.8-2.0); ALANINE AMINOTRANSFERASE,ALT 27.0 U/L (12-78); ASPARTATE AMNIOTRANSFERASE,AST 15.0 U/L (15-37); BILIRUBIN TOTAL 0.4 mg/dL (0.0-1.0); BLOOD UREA NITROGEN,BUN 22.0 mg/dL (8-26); CARBON DIOXIDE,CO2 29.8 mmol/L (21.0-32.0); CHLORIDE,CL 100.0 mmol/L (98-107); CREATININE 0.54 mg/dL (0.55-1.02); EST CRCL DRUG DOSING (CG) 95.2 mL/min; ESTIMATED GFR 105.0 mL/min (>60); GLUCOSE RANDOM 176.0 mg/dL (74-100); POTASSIUM,K 3.5 mmol/L (3.5-5.1); PROTEIN TOTAL,TP 8.3 g/dL (6.4-8.2); SODIUM,NA 141.0 mmol/L (136-145); TROPONIN I HIGH SENSITIVITY 24.4 pg/ml (<=60.4)
[2025-07-09] MEDS: Sodium Chloride 0.9% 50 ML SDV FLUSH SCH (16:09)
[2025-07-09] MEDS: Iopamidol 612 MG/ML 100 ML Bottle IV PRN (16:09)
[2025-07-09] MEDS: Prochlorperazine 10 MG/2 ML SDV IVPUSH ONE ×2 (16:22→20:36)
[2025-07-09] MEDS: Levofloxacin/Dextrose 5%-Water 750 MG in Levofloxacin/Dextrose 5%-Water 150 ML IV ONE (20:21)
[2025-07-09] MEDS: Prochlorperazine 5 MG in Sodium Chloride 0.9% 50 ML IV ONE (20:50)
[2025-07-09] MEDS: Prochlorperazine 10 MG/2 ML SDV ONE (20:51)
[2025-07-09 21:00] LABS: BLOOD UREA NITROGEN,BUN 18.0 mg/dL (8-26); CARBON DIOXIDE,CO2 25.0 mmol/L (21.0-32.0); CHLORIDE,CL 104.0 mmol/L (98-107); CREATININE 0.58 mg/dL (0.55-1.02); EST CRCL DRUG DOSING (CG) 88.63 mL/min; ESTIMATED GFR 104.0 mL/min (>60); GLUCOSE RANDOM 152.0 mg/dL (74-100); POTASSIUM,K 3.5 mmol/L (3.5-5.1); SODIUM,NA 141.0 mmol/L (136-145)
[2025-07-09] MEDS: Furosemide 40 MG/4 ML VIAL IVPUSH ONE (23:12)
[2025-07-10] MEDS ORDERED: Iopamidol 612 MG/ML 100 ML Bottle IV PRN (00:56)
[2025-07-10] MEDS ORDERED: Sodium Chloride 0.9% 50 ML SDV FLUSH SCH (01:00)
[2025-07-10 01:45] LABS: APPEARANCE,URINE CLEAR (CLEAR); GLUCOSE,URINE NEGATIVE (NEGATIVE); OCCULT BLOOD,URINE NEGATIVE (NEGATIVE)
[2025-07-10 01:46] LABS: BASOPHILS ABSOLUTE AUTO 0.11 K/uL (0.02-0.10); BASOPHILS PERCENT AUTO 0.8 % (0.0-0.5); EOSINOPHILS ABSOLUTE AUTO 0.02 K/uL (0.04-0.40); EOSINOPHILS PERCENT AUTO 0.2 % (1.0-5.0); LYMPHOCYTES ABSOLUTE AUTO 2.66 K/uL (1.50-4.00); LYMPHOCYTES PERCENT AUTO 20.2 % (20.0-40.0); MEAN PLATELET VOLUME 9.7 fL (6.0-10.0); MONOCYTES ABSOLUTE AUTO 0.83 K/uL (0.20-0.80); MONOCYTES PERCENT AUTO 6.3 % (3.0-10.0); NEUTROPHILS ABSOLUTE AUTO 9.55 K/uL (2.00-7.50); NEUTROPHILS PERCENT AUTO 72.5 % (45.0-70.0); PLATELET COUNT,PLT 252 K/uL (150-500); RED BLOOD CELL COUNT 3.96 M/uL (3.80-5.80); RED CELL DISTRIBUTION WIDTH 12.7 % (11.0-16.0); WHITE BLOOD CELL COUNT,WBC 13.2 K/uL (4.0-11.0)
== END 2025-07-10 01:43 ==
LOC: LB.ED 14:38
DX: I21.4 Non-ST elevation (NSTEMI) myocardial infarction (principal); I11.0 Hypertensive heart disease with heart failure; I50.9 Heart failure, unspecified; E78.00 Pure hypercholesterolemia, unspecified; E11.9 Type 2 diabetes mellitus without complications; Z88.2 Allergy status to sulfonamides; Z88.8 Allergy status to other drugs, medicaments and biological substances; Z79.84 Long term (current) use of oral hypoglycemic drugs; Z79.899 Other long term (current) drug therapy; Z90.49 Acquired absence of other specified parts of digestive tract; Z90.710 Acquired absence of both cervix and uterus
CPT/HCPCS: 36415; 71046; 71275; 74177; 80048; 80053; 81003; 83605; 83690; 84484; 85025; 85379; 87040; 93005; 96360; 96361; 96365; 96374; 96375; 99285; A9270; J0456; J0696; J0780; J1885; J1938; J2405; J2470; J7030; J7040; Q9967; 93010

== ENCOUNTER 2025-07-15 14:22 | Emergency (ER) | payer MEDICARE ==
[2025-07-15] MEDS: fentaNYL 100 MCG/2 ML SDV IVPUSH ONE ×2 (15:00→16:27)
[2025-07-15] MEDS: Ondansetron 4 MG/2 ML SDV IVPUSH ONE ×2 (15:00→16:29)
[2025-07-15 15:23] LABS: BASOPHILS ABSOLUTE AUTO 0.07 K/uL (0.02-0.10); BASOPHILS PERCENT AUTO 0.5 % (0.0-0.5); EOSINOPHILS ABSOLUTE AUTO 0.03 K/uL (0.04-0.40); EOSINOPHILS PERCENT AUTO 0.2 % (1.0-5.0); LYMPHOCYTES ABSOLUTE AUTO 1.58 K/uL (1.50-4.00); LYMPHOCYTES PERCENT AUTO 11.2 % (20.0-40.0); MEAN PLATELET VOLUME 10.1 fL (6.0-10.0); MONOCYTES ABSOLUTE AUTO 0.66 K/uL (0.20-0.80); MONOCYTES PERCENT AUTO 4.7 % (3.0-10.0); NEUTROPHILS ABSOLUTE AUTO 11.81 K/uL (2.00-7.50); NEUTROPHILS PERCENT AUTO 83.4 % (45.0-70.0); PLATELET COUNT,PLT 322 K/uL (150-500); RED BLOOD CELL COUNT 4.79 M/uL (3.80-5.80); RED CELL DISTRIBUTION WIDTH 12.8 % (11.0-16.0); WHITE BLOOD CELL COUNT,WBC 14.2 K/uL (4.0-11.0)
[2025-07-15 15:48] LABS: A/G RATIO 1.1 (0.8-2.0); ALANINE AMINOTRANSFERASE,ALT 45.0 U/L (12-78); ASPARTATE AMNIOTRANSFERASE,AST 30.0 U/L (15-37); BILIRUBIN TOTAL 1.0 mg/dL (0.0-1.0); BLOOD UREA NITROGEN,BUN 20.0 mg/dL (8-26); CARBON DIOXIDE,CO2 27.8 mmol/L (21.0-32.0); CHLORIDE,CL 98.0 mmol/L (98-107); CREATININE 0.66 mg/dL (0.55-1.02); EST CRCL DRUG DOSING (CG) 78.27 mL/min; ESTIMATED GFR 100.0 mL/min (>60); GLUCOSE RANDOM 183.0 mg/dL (74-100); POTASSIUM,K 3.5 mmol/L (3.5-5.1); PROTEIN TOTAL,TP 8.9 g/dL (6.4-8.2); SODIUM,NA 139.0 mmol/L (136-145)
== END 2025-07-15 16:49 | disposition home or self-care (01) ==
LOC: LB.ED 14:22
DX: K29.50 Unspecified chronic gastritis without bleeding (principal); I11.0 Hypertensive heart disease with heart failure; I50.9 Heart failure, unspecified; I25.2 Old myocardial infarction; E78.00 Pure hypercholesterolemia, unspecified; J45.909 Unspecified asthma, uncomplicated; E11.9 Type 2 diabetes mellitus without complications; Z88.8 Allergy status to other drugs, medicaments and biological substances; Z88.2 Allergy status to sulfonamides; Z91.018 Allergy to other foods; Z79.51 Long term (current) use of inhaled steroids; Z79.899 Other long term (current) drug therapy; Z79.01 Long term (current) use of anticoagulants
CPT/HCPCS: 36415; 80053; 85025; 96361; 96374; 96375; 96376; 99283; 99284-25; J2405; J2470; J3010; J7030

== ENCOUNTER 2025-07-16 12:24 | Emergency (ER) | payer MEDICARE ==
[2025-07-16] MEDS: Ondansetron 4 MG/2 ML SDV IVPUSH ONE (13:06)
[2025-07-16] MEDS: fentaNYL 100 MCG/2 ML SDV IVPUSH ONE (13:08)
[2025-07-16 13:14] LABS: BASOPHILS ABSOLUTE AUTO 0.08 K/uL (0.02-0.10); BASOPHILS PERCENT AUTO 0.7 % (0.0-0.5); EOSINOPHILS ABSOLUTE AUTO 0.02 K/uL (0.04-0.40); EOSINOPHILS PERCENT AUTO 0.2 % (1.0-5.0); LYMPHOCYTES ABSOLUTE AUTO 2.09 K/uL (1.50-4.00); LYMPHOCYTES PERCENT AUTO 17.3 % (20.0-40.0); MEAN PLATELET VOLUME 9.8 fL (6.0-10.0); MONOCYTES ABSOLUTE AUTO 0.54 K/uL (0.20-0.80); MONOCYTES PERCENT AUTO 4.5 % (3.0-10.0); NEUTROPHILS ABSOLUTE AUTO 9.32 K/uL (2.00-7.50); NEUTROPHILS PERCENT AUTO 77.3 % (45.0-70.0); PLATELET COUNT,PLT 291 K/uL (150-500); RED BLOOD CELL COUNT 4.05 M/uL (3.80-5.80); RED CELL DISTRIBUTION WIDTH 12.8 % (11.0-16.0); WHITE BLOOD CELL COUNT,WBC 12.1 K/uL (4.0-11.0)
[2025-07-16] MEDS: Aluminum Hydroxide/Magnesium Hydroxide/Simethicone Susp 30 ML Cup PO PRN (13:31)
[2025-07-16] MEDS: Lidocaine 2% Viscous Solution 15 ML UD PO ONE (13:31)
[2025-07-16] MEDS: diphenhydrAMINE 12.5 MG/5 ML Liquid 120 ML Bottle PO ONE (13:33)
[2025-07-16 13:38] LABS: A/G RATIO 0.9 (0.8-2.0); ALANINE AMINOTRANSFERASE,ALT 37 U/L (12-78); ASPARTATE AMNIOTRANSFERASE,AST 22 U/L (15-37); BILIRUBIN TOTAL 0.5 mg/dL (0.0-1.0); BLOOD UREA NITROGEN,BUN 18 mg/dL (8-26); CARBON DIOXIDE,CO2 25.5 mmol/L (21.0-32.0); CHLORIDE,CL 101 mmol/L (98-107); CREATININE 0.49 mg/dL (0.55-1.02); EST CRCL DRUG DOSING (CG) 101.42 mL/min; ESTIMATED GFR 108 mL/min (>60); GLUCOSE RANDOM 173 mg/dL (74-100); POTASSIUM,K 3.5 mmol/L (3.5-5.1); PROTEIN TOTAL,TP 8.3 g/dL (6.4-8.2); SODIUM,NA 138 mmol/L (136-145)
[2025-07-16] MEDS: GI Cocktail Oral Solution 30 ML PO ONE (13:58)
== END 2025-07-16 14:30 | disposition home or self-care (01) ==
LOC: LB.ED 12:24
DX: K29.50 Unspecified chronic gastritis without bleeding (principal); I11.0 Hypertensive heart disease with heart failure; I50.9 Heart failure, unspecified; E78.00 Pure hypercholesterolemia, unspecified; I25.2 Old myocardial infarction; E11.9 Type 2 diabetes mellitus without complications; J45.909 Unspecified asthma, uncomplicated; F17.210 Nicotine dependence, cigarettes, uncomplicated; Z88.1 Allergy status to other antibiotic agents; Z91.018 Allergy to other foods; Z88.2 Allergy status to sulfonamides; Z88.5 Allergy status to narcotic agent; Z79.51 Long term (current) use of inhaled steroids; Z79.899 Other long term (current) drug therapy; Z79.01 Long term (current) use of anticoagulants
CPT/HCPCS: 36415; 80053; 83605; 83690; 84145; 85025; 86140; 96374; 96375; 99284; A9270; J2405; J2470; J3010

== ENCOUNTER 2025-09-01 19:08 | Emergency (ER) | payer MEDICARE ==
[2025-09-01] MEDS ORDERED: Sodium Chloride 0.9% 10 ML Syringe FLUSH PRN (19:28)
[2025-09-01] MEDS: Ondansetron 4 MG/2 ML SDV IVPUSH ONE (19:41)
[2025-09-01 20:05] LABS: BASOPHILS ABSOLUTE AUTO 0.09 K/uL (0.02-0.10); BASOPHILS PERCENT AUTO 0.8 % (0.0-0.5); EOSINOPHILS ABSOLUTE AUTO 0.22 K/uL (0.04-0.40); EOSINOPHILS PERCENT AUTO 2.0 % (1.0-5.0); LYMPHOCYTES ABSOLUTE AUTO 2.51 K/uL (1.50-4.00); LYMPHOCYTES PERCENT AUTO 22.9 % (20.0-40.0); MEAN PLATELET VOLUME 9.9 fL (6.0-10.0); MONOCYTES ABSOLUTE AUTO 0.61 K/uL (0.20-0.80); MONOCYTES PERCENT AUTO 5.6 % (3.0-10.0); NEUTROPHILS ABSOLUTE AUTO 7.51 K/uL (2.00-7.50); NEUTROPHILS PERCENT AUTO 68.7 % (45.0-70.0); PLATELET COUNT,PLT 309 K/uL (150-500); RED BLOOD CELL COUNT 4.93 M/uL (3.80-5.80); RED CELL DISTRIBUTION WIDTH 12.9 % (11.0-16.0); WHITE BLOOD CELL COUNT,WBC 10.9 K/uL (4.0-11.0)
[2025-09-01 20:10] LABS: BLOOD UREA NITROGEN,BUN 20 mg/dL (8-26); CARBON DIOXIDE,CO2 30.2 mmol/L (21.0-32.0); CHLORIDE,CL 98 mmol/L (98-107); CREATININE 0.83 mg/dL (0.55-1.02); ESTIMATED GFR 81 mL/min (>60); GLUCOSE RANDOM 135 mg/dL (74-100); POTASSIUM,K 3.8 mmol/L (3.5-5.1); SODIUM,NA 140 mmol/L (136-145)
== END 2025-09-01 22:05 | disposition home or self-care (01) ==
LOC: LB.ED 19:08
DX: K52.9 Noninfective gastroenteritis and colitis, unspecified (principal); I11.0 Hypertensive heart disease with heart failure; I50.9 Heart failure, unspecified; E11.9 Type 2 diabetes mellitus without complications; E78.00 Pure hypercholesterolemia, unspecified; F17.200 Nicotine dependence, unspecified, uncomplicated; Z79.899 Other long term (current) drug therapy; Z88.2 Allergy status to sulfonamides; Z88.8 Allergy status to other drugs, medicaments and biological substances; Z90.710 Acquired absence of both cervix and uterus; Z90.49 Acquired absence of other specified parts of digestive tract
CPT/HCPCS: 36415; 80048; 85025; 96361; 96374; 96375; 96376; 99284; 99284-25; J1171; J2405; J2470; J2765; J7030

== ENCOUNTER 2025-09-03 09:33 | Emergency (ER) | payer MEDICARE ==
[2025-09-03] MEDS ORDERED: Sodium Chloride 0.9% 10 ML Syringe FLUSH PRN (09:51)
[2025-09-03] MEDS: Ondansetron 4 MG/2 ML SDV IVPUSH ONE (09:55)
[2025-09-03] MEDS: Ondansetron 4 MG/2 ML SDV ONE (10:02)
[2025-09-03 10:16] LABS: BLOOD UREA NITROGEN,BUN 24.0 mg/dL (8-26); CARBON DIOXIDE,CO2 30.1 mmol/L (21.0-32.0); CHLORIDE,CL 98.0 mmol/L (98-107); CREATININE 0.67 mg/dL (0.55-1.02); EST CRCL DRUG DOSING (CG) 77.11 mL/min; ESTIMATED GFR 100.0 mL/min (>60); GLUCOSE RANDOM 201.0 mg/dL (74-100); POTASSIUM,K 4.4 mmol/L (3.5-5.1); SODIUM,NA 139.0 mmol/L (136-145)
[2025-09-03] MEDS: Sodium Phosphate,Monobasic/Sodium Phosphate,Dibasic Enema 133 ML Bottle RECTAL ONE (11:00)
== END 2025-09-03 12:15 | disposition home or self-care (01) ==
LOC: LB.ED 09:33
DX: K59.00 Constipation, unspecified (principal); I11.0 Hypertensive heart disease with heart failure; I50.9 Heart failure, unspecified; E78.00 Pure hypercholesterolemia, unspecified; E11.9 Type 2 diabetes mellitus without complications; F17.200 Nicotine dependence, unspecified, uncomplicated; Z79.899 Other long term (current) drug therapy; Z88.2 Allergy status to sulfonamides; Z88.8 Allergy status to other drugs, medicaments and biological substances; Z90.710 Acquired absence of both cervix and uterus
CPT/HCPCS: 36415; 74019; 80048; 96361; 96374; 96375; 99284; A9270; J1171; J2405; J7040

== ENCOUNTER 2025-09-24 18:02 | Emergency (ER) | payer MEDICARE ==
[2025-09-24] MEDS ORDERED: Sodium Chloride 0.9% 10 ML Syringe FLUSH PRN (18:28)
[2025-09-24] MEDS: Ondansetron 4 MG/2 ML SDV IVPUSH ONE (18:43)
[2025-09-24 18:45] LABS: BASOPHILS ABSOLUTE AUTO 0.10 K/uL (0.02-0.10); BASOPHILS PERCENT AUTO 0.9 % (0.0-0.5); EOSINOPHILS ABSOLUTE AUTO 0.39 K/uL (0.04-0.40); EOSINOPHILS PERCENT AUTO 3.4 % (1.0-5.0); LYMPHOCYTES ABSOLUTE AUTO 2.31 K/uL (1.50-4.00); LYMPHOCYTES PERCENT AUTO 20.4 % (20.0-40.0); MEAN PLATELET VOLUME 9.1 fL (6.0-10.0); MONOCYTES ABSOLUTE AUTO 0.77 K/uL (0.20-0.80); MONOCYTES PERCENT AUTO 6.8 % (3.0-10.0); NEUTROPHILS ABSOLUTE AUTO 7.78 K/uL (2.00-7.50); NEUTROPHILS PERCENT AUTO 68.5 % (45.0-70.0); PLATELET COUNT,PLT 313 K/uL (150-500); RED BLOOD CELL COUNT 4.28 M/uL (3.80-5.80); RED CELL DISTRIBUTION WIDTH 12.8 % (11.0-16.0); WHITE BLOOD CELL COUNT,WBC 11.4 K/uL (4.0-11.0)
[2025-09-24 19:06] LABS: A/G RATIO 0.9 (0.8-2.0); ALANINE AMINOTRANSFERASE,ALT 21 U/L (12-78); ASPARTATE AMNIOTRANSFERASE,AST 18 U/L (15-37); BILIRUBIN TOTAL 0.5 mg/dL (0.0-1.0); BLOOD UREA NITROGEN,BUN 18 mg/dL (8-26); CARBON DIOXIDE,CO2 29.2 mmol/L (21.0-32.0); CHLORIDE,CL 98 mmol/L (98-107); CREATININE 0.82 mg/dL (0.55-1.02); ESTIMATED GFR 82 mL/min (>60); GLUCOSE RANDOM 126 mg/dL (74-100); POTASSIUM,K 4.0 mmol/L (3.5-5.1); PROTEIN TOTAL,TP 8.0 g/dL (6.4-8.2); SODIUM,NA 131 mmol/L (136-145)
[2025-09-24 19:11] LABS: EST CRCL DRUG DOSING (CG) 63.00 mL/min
[2025-09-24] MEDS: Sodium Chloride 0.9% 50 ML SDV FLUSH SCH (19:38)
[2025-09-24] MEDS: Iopamidol 612 MG/ML 100 ML Bottle IV PRN (19:38)
[2025-09-24] MEDS: GI Cocktail Oral Solution 30 ML PO ONE (20:32)
[2025-09-24] MEDS: metroNIDAZOLE/Normal Saline 500 MG in Premix Bag 1 BAG IV ONE (20:38)
== END 2025-09-24 21:37 | disposition home or self-care (01) ==
LOC: LB.ED 18:02
DX: K52.9 Noninfective gastroenteritis and colitis, unspecified (principal); K27.9 Peptic ulcer, site unspecified, unspecified as acute or chronic, without hemorrhage or perforation; I11.0 Hypertensive heart disease with heart failure; I50.9 Heart failure, unspecified; E78.00 Pure hypercholesterolemia, unspecified; E11.9 Type 2 diabetes mellitus without complications; I25.2 Old myocardial infarction; J45.909 Unspecified asthma, uncomplicated; Z88.2 Allergy status to sulfonamides; Z88.8 Allergy status to other drugs, medicaments and biological substances; Z88.1 Allergy status to other antibiotic agents; Z79.899 Other long term (current) drug therapy; Z79.82 Long term (current) use of aspirin; Z79.01 Long term (current) use of anticoagulants
CPT/HCPCS: 36415; 74177; 80053; 83690; 85025; 86140; 96365; 96375; 99284-25; A9270-GY; J1836; J2270; J2405; Q9967

== ENCOUNTER 2025-09-26 08:04 | Emergency (ER) | payer MEDICARE ==
[2025-09-26] MEDS ORDERED: Sodium Chloride 0.9% 10 ML Syringe FLUSH PRN (08:11)
[2025-09-26] MEDS: GI Cocktail Oral Solution 30 ML PO ONE (08:33)
[2025-09-26 08:36] LABS: BASOPHILS ABSOLUTE AUTO 0.05 K/uL (0.02-0.10); BASOPHILS PERCENT AUTO 0.5 % (0.0-0.5); EOSINOPHILS ABSOLUTE AUTO 0.32 K/uL (0.04-0.40); EOSINOPHILS PERCENT AUTO 3.0 % (1.0-5.0); LYMPHOCYTES ABSOLUTE AUTO 1.89 K/uL (1.50-4.00); LYMPHOCYTES PERCENT AUTO 18.0 % (20.0-40.0); MEAN PLATELET VOLUME 9.4 fL (6.0-10.0); MONOCYTES ABSOLUTE AUTO 0.65 K/uL (0.20-0.80); MONOCYTES PERCENT AUTO 6.2 % (3.0-10.0); NEUTROPHILS ABSOLUTE AUTO 7.60 K/uL (2.00-7.50); NEUTROPHILS PERCENT AUTO 72.3 % (45.0-70.0); PLATELET COUNT,PLT 317 K/uL (150-500); RED BLOOD CELL COUNT 4.75 M/uL (3.80-5.80); RED CELL DISTRIBUTION WIDTH 12.8 % (11.0-16.0); WHITE BLOOD CELL COUNT,WBC 10.5 K/uL (4.0-11.0)
[2025-09-26 09:06] LABS: A/G RATIO 1.0 (0.8-2.0); ALANINE AMINOTRANSFERASE,ALT 20.0 U/L (12-78); ASPARTATE AMNIOTRANSFERASE,AST 16.0 U/L (15-37); BILIRUBIN TOTAL 0.3 mg/dL (0.0-1.0); BLOOD UREA NITROGEN,BUN 22.0 mg/dL (8-26); CARBON DIOXIDE,CO2 32.4 mmol/L (21.0-32.0); CHLORIDE,CL 99.0 mmol/L (98-107); CREATININE 0.87 mg/dL (0.55-1.02); EST CRCL DRUG DOSING (CG) 59.09 mL/min; ESTIMATED GFR 76.0 mL/min (>60); GLUCOSE RANDOM 173.0 mg/dL (74-100); POTASSIUM,K 4.0 mmol/L (3.5-5.1); PROTEIN TOTAL,TP 8.8 g/dL (6.4-8.2); SODIUM,NA 143.0 mmol/L (136-145)
== END 2025-09-26 09:45 | disposition home or self-care (01) ==
LOC: LB.ED 08:04
DX: R10.84 Generalized abdominal pain (principal); R11.2 Nausea with vomiting, unspecified; I11.0 Hypertensive heart disease with heart failure; I50.9 Heart failure, unspecified; E78.00 Pure hypercholesterolemia, unspecified; I25.2 Old myocardial infarction; E11.9 Type 2 diabetes mellitus without complications; Z88.8 Allergy status to other drugs, medicaments and biological substances; Z88.2 Allergy status to sulfonamides; Z91.018 Allergy to other foods; Z79.84 Long term (current) use of oral hypoglycemic drugs; Z79.899 Other long term (current) drug therapy; Z90.49 Acquired absence of other specified parts of digestive tract
CPT/HCPCS: 36415; 80053; 85025; 96374; 96375; 99284-25; A9270-GY; J2270; J2765

== ENCOUNTER 2025-09-26 13:26 | Observation (INO) | payer MEDICARE ==
[2025-09-26] MEDS ORDERED: Non-Formulary Medication 1 Each (Ondansetron [Zofran Odt] 4 MG Tab.Dis) PO PRN (15:35)
[2025-09-26] MEDS ORDERED: FAMOTIDINE 20 MG PO SCH (15:45)
[2025-09-26] MEDS ORDERED: BUMETANIDE 1 MG PO SCH (15:45)
[2025-09-26] MEDS ORDERED: Ondansetron 4 MG Tab.DIS PO PRN (15:46)
[2025-09-26] MEDS: METRONIDAZOLE 500 MG PO SCH (18:09)
[2025-09-26] MEDS: [UNRECOGNIZED DRUG - OTHER] PO SCH (18:19)
[2025-09-26] MEDS: METRONIDAZOLE PO SCH (18:19)
[2025-09-26] MEDS: APIXABAN 5 MG PO SCH (19:21)
[2025-09-26] MEDS: Formoterol/Mometasone 100-5 MCG 8.8 GM Inhaler INH SCH (19:21)
[2025-09-26] MEDS: Gabapentin 300 MG Cap *PT OWN MED PO SCH (19:22)
[2025-09-26] MEDS: Rosuvastatin 20 MG Tab *PT OWN MED PO SCH (19:22)
[2025-09-26] MEDS: METFORMIN 1000 MG PO SCH (19:22)
[2025-09-26] MEDS: LISINOPRIL 5 MG PO SCH (19:23)
[2025-09-27] MEDS: PANTOPRAZOLE 20 MG PO SCH (06:39)
[2025-09-27] MEDS: ONDANSETRON 4 MG PO PRN (06:42)
[2025-09-27] MEDS: BUMETANIDE 1 MG PO SCH (07:21)
[2025-09-27] MEDS: Famotidine 20 MG Tab *PT OWN MED PO SCH (07:22)
[2025-09-27 08:05] LABS: BASOPHILS ABSOLUTE AUTO 0.05 K/uL (0.02-0.10); BASOPHILS PERCENT AUTO 0.7 % (0.0-0.5); EOSINOPHILS ABSOLUTE AUTO 0.26 K/uL (0.04-0.40); EOSINOPHILS PERCENT AUTO 3.4 % (1.0-5.0); LYMPHOCYTES ABSOLUTE AUTO 2.10 K/uL (1.50-4.00); LYMPHOCYTES PERCENT AUTO 27.8 % (20.0-40.0); MEAN PLATELET VOLUME 9.5 fL (6.0-10.0); MONOCYTES ABSOLUTE AUTO 0.51 K/uL (0.20-0.80); MONOCYTES PERCENT AUTO 6.8 % (3.0-10.0); NEUTROPHILS ABSOLUTE AUTO 4.63 K/uL (2.00-7.50); NEUTROPHILS PERCENT AUTO 61.3 % (45.0-70.0); PLATELET COUNT,PLT 267 K/uL (150-500); RED BLOOD CELL COUNT 4.13 M/uL (3.80-5.80); RED CELL DISTRIBUTION WIDTH 12.9 % (11.0-16.0); WHITE BLOOD CELL COUNT,WBC 7.6 K/uL (4.0-11.0)
[2025-09-27 08:31] LABS: A/G RATIO 0.9 (0.8-2.0); ALANINE AMINOTRANSFERASE,ALT 22.0 U/L (12-78); ASPARTATE AMNIOTRANSFERASE,AST 22.0 U/L (15-37); BILIRUBIN TOTAL 0.3 mg/dL (0.0-1.0); BLOOD UREA NITROGEN,BUN 14.0 mg/dL (8-26); CARBON DIOXIDE,CO2 29.3 mmol/L (21.0-32.0); CHLORIDE,CL 107.0 mmol/L (98-107); CREATININE 0.65 mg/dL (0.55-1.02); EST CRCL DRUG DOSING (CG) 78.75 mL/min; ESTIMATED GFR 101.0 mL/min (>60); GLUCOSE RANDOM 137.0 mg/dL (74-100); POTASSIUM,K 4.4 mmol/L (3.5-5.1); PROTEIN TOTAL,TP 7.2 g/dL (6.4-8.2); SODIUM,NA 144.0 mmol/L (136-145)
== END 2025-09-27 11:50 | disposition home or self-care (01) ==
LOC: LB.ED 13:26 → LB.MS 14:16 → UNDOADMOB 16:30 → LB.MS 20:42 → UNDODISOB 09-27 11:50
PROVIDERS: ADMIT Nurse Practitioner Family; ATTEND Nurse Practitioner Family
DX: R10.9 Unspecified abdominal pain (principal); R11.2 Nausea with vomiting, unspecified; E11.9 Type 2 diabetes mellitus without complications; E78.00 Pure hypercholesterolemia, unspecified; I10 Essential (primary) hypertension; Z79.84 Long term (current) use of oral hypoglycemic drugs; Z79.01 Long term (current) use of anticoagulants; Z88.8 Allergy status to other drugs, medicaments and biological substances; Z88.2 Allergy status to sulfonamides; Z91.09 Other allergy status, other than to drugs and biological substances; Z79.899 Other long term (current) drug therapy
CPT/HCPCS: 36415; 80053; 82947; 85025; 96361; 96374; 96375; 96376; 99223; 99238; 99284; A9270; G0378; J2270; J2470; J7030; Q0162

== ENCOUNTER 2025-09-29 09:02 | Emergency (ER) | payer MEDICARE ==
[2025-09-29] MEDS: Prochlorperazine 10 MG/2 ML SDV IVPUSH ONE (09:44)
[2025-09-29] MEDS ORDERED: Sodium Chloride 0.9% 10 ML Syringe FLUSH PRN ×2 (10:06→11:21)
[2025-09-29 11:41] LABS: MEAN PLATELET VOLUME 9.2 fL (6.0-10.0); PLATELET COUNT,PLT 282.0 K/uL (150-500); RED BLOOD CELL COUNT 4.3 M/uL (3.80-5.80); RED CELL DISTRIBUTION WIDTH 12.9 % (11.0-16.0); WHITE BLOOD CELL COUNT,WBC 9.9 K/uL (4.0-11.0)
[2025-09-29 12:05] LABS: A/G RATIO 1.0 (0.8-2.0); ALANINE AMINOTRANSFERASE,ALT 23.0 U/L (12-78); ASPARTATE AMNIOTRANSFERASE,AST 19.0 U/L (15-37); BILIRUBIN TOTAL 0.3 mg/dL (0.0-1.0); BLOOD UREA NITROGEN,BUN 19.0 mg/dL (8-26); CARBON DIOXIDE,CO2 30.7 mmol/L (21.0-32.0); CHLORIDE,CL 99.0 mmol/L (98-107); CREATININE 0.88 mg/dL (0.55-1.02); EST CRCL DRUG DOSING (CG) 58.71 mL/min; ESTIMATED GFR 75.0 mL/min (>60); GLUCOSE RANDOM 139.0 mg/dL (74-100); PHOSPHORUS 4.0 mg/dL (2.5-4.9); POTASSIUM,K 4.2 mmol/L (3.5-5.1); PROTEIN TOTAL,TP 7.5 g/dL (6.4-8.2); SODIUM,NA 140.0 mmol/L (136-145); TROPONIN I HIGH SENSITIVITY 10.9 pg/ml (<=60.4)
[2025-09-29 14:04] LABS: TROPONIN I HIGH SENSITIVITY 13.6 pg/ml (<=60.4)
== END 2025-09-29 14:20 | disposition home or self-care (01) ==
LOC: LB.ED 09:02
DX: K29.70 Gastritis, unspecified, without bleeding (principal); K27.9 Peptic ulcer, site unspecified, unspecified as acute or chronic, without hemorrhage or perforation; I95.9 Hypotension, unspecified; I11.0 Hypertensive heart disease with heart failure; I50.9 Heart failure, unspecified; I25.2 Old myocardial infarction; E78.00 Pure hypercholesterolemia, unspecified; E11.40 Type 2 diabetes mellitus with diabetic neuropathy, unspecified; Z90.710 Acquired absence of both cervix and uterus; Z79.899 Other long term (current) drug therapy; Z79.84 Long term (current) use of oral hypoglycemic drugs; Z91.018 Allergy to other foods; Z88.2 Allergy status to sulfonamides; Z88.8 Allergy status to other drugs, medicaments and biological substances
CPT/HCPCS: 36415; 71045; 80053; 83735; 84100; 84484; 85027; 85379; 86140; 93005; 96361; 96374; 96375; 99284-25; J0780; J2270; J7030

== ENCOUNTER 2025-09-30 10:53 | Inpatient (IN) | payer MEDICARE ==
[2025-09-30] MEDS: Prochlorperazine 10 MG/2 ML SDV IVPUSH ONE (11:32)
[2025-09-30] MEDS: diphenhydrAMINE 50 MG/ML SDV IVPUSH ONE (11:51)
[2025-09-30] MEDS: Sodium Chloride 0.9% 10 ML Syringe FLUSH PRN (12:30)
[2025-09-30] MEDS: Sodium Chloride 0.9% 50 ML SDV FLUSH ONE (12:35)
[2025-09-30] MEDS: Iopamidol 612 MG/ML 100 ML Bottle IV SCH (12:35)
[2025-09-30] MEDS ORDERED: Iopamidol 612 MG/ML 100 ML Bottle IV SCH (13:45)
[2025-09-30] MEDS: Ondansetron 4 MG/2 ML SDV IVPUSH ONE (16:03)
[2025-09-30] MEDS: metFORMIN 1,000 MG Tab PO SCH (17:38)
[2025-09-30] MEDS: Formoterol/Mometasone 100-5 MCG 8.8 GM Inhaler INH SCH (20:15)
[2025-10-01] MEDS: Ondansetron 4 MG/2 ML SDV IV PRN (08:20)
[2025-10-01] MEDS: fentaNYL 25 MCG/HR Transdermal Patch TRDERM SCH (11:40)
[2025-10-02] MEDS: Ondansetron 4 MG Tab.DIS PO PRN (16:57)
[2025-10-05] MEDS: Magnesium Citrate Solution 296 ML Bottle PO ONE ×2 (10:50→17:08)
== END 2025-10-05 16:55 | disposition home or self-care (01) | DRG 384 ==
LOC: LB.ED 10:53 → LB.MS 16:26
PROVIDERS: ADMIT Surgery; ATTEND Surgery
DX: K29.50 Unspecified chronic gastritis without bleeding (principal); K27.3 Acute peptic ulcer, site unspecified, without hemorrhage or perforation; H54.7 Unspecified visual loss; I11.0 Hypertensive heart disease with heart failure; I50.9 Heart failure, unspecified; K27.9 Peptic ulcer, site unspecified, unspecified as acute or chronic, without hemorrhage or perforation; E78.00 Pure hypercholesterolemia, unspecified; Z88.2 Allergy status to sulfonamides; F17.200 Nicotine dependence, unspecified, uncomplicated; K29.70 Gastritis, unspecified, without bleeding; K59.00 Constipation, unspecified; J45.909 Unspecified asthma, uncomplicated; E11.21 Type 2 diabetes mellitus with diabetic nephropathy; M54.9 Dorsalgia, unspecified; F32.A Depression, unspecified; G89.29 Other chronic pain; F41.9 Anxiety disorder, unspecified; I25.2 Old myocardial infarction; Z85.43 Personal history of malignant neoplasm of ovary; Z90.49 Acquired absence of other specified parts of digestive tract; Z88.8 Allergy status to other drugs, medicaments and biological substances; Z79.899 Other long term (current) drug therapy; Z79.84 Long term (current) use of oral hypoglycemic drugs; Z79.01 Long term (current) use of anticoagulants; Z90.710 Acquired absence of both cervix and uterus
CPT/HCPCS: 74177; 82947; 96361; 96374; 96375; 96376; 99223; 99231; 99232; 99238; 99285-25; A9270-GY; J0780; J1200; J2270; J2405; J2470; J7030; Q0162; Q9967

== ENCOUNTER 2025-11-03 08:32 | Inpatient (IN) | payer MEDICARE ==
[2025-11-03] MEDS: Sodium Chloride 0.9% 10 ML Syringe FLUSH PRN (09:00)
[2025-11-03] MEDS: Ondansetron 4 MG/2 ML SDV IVPUSH ONE ×2 (09:10→12:12)
[2025-11-03 09:12] LABS: BASOPHILS ABSOLUTE AUTO 0.10 K/uL (0.02-0.10); BASOPHILS PERCENT AUTO 0.8 % (0.0-0.5); EOSINOPHILS ABSOLUTE AUTO 0.10 K/uL (0.04-0.40); EOSINOPHILS PERCENT AUTO 0.8 % (1.0-5.0); LYMPHOCYTES ABSOLUTE AUTO 1.57 K/uL (1.50-4.00); LYMPHOCYTES PERCENT AUTO 13.3 % (20.0-40.0); MEAN PLATELET VOLUME 9.2 fL (6.0-10.0); MONOCYTES ABSOLUTE AUTO 0.36 K/uL (0.20-0.80); MONOCYTES PERCENT AUTO 3.1 % (3.0-10.0); NEUTROPHILS ABSOLUTE AUTO 9.64 K/uL (2.00-7.50); NEUTROPHILS PERCENT AUTO 82.0 % (45.0-70.0); PLATELET COUNT,PLT 367 K/uL (150-500); RED BLOOD CELL COUNT 4.49 M/uL (3.80-5.80); RED CELL DISTRIBUTION WIDTH 13.1 % (11.0-16.0); WHITE BLOOD CELL COUNT,WBC 11.8 K/uL (4.0-11.0)
[2025-11-03 09:50] LABS: A/G RATIO 0.8 (0.8-2.0); ALANINE AMINOTRANSFERASE,ALT 21 U/L (12-78); ASPARTATE AMNIOTRANSFERASE,AST 13 U/L (15-37); BLOOD UREA NITROGEN,BUN 30 mg/dL (8-26); CARBON DIOXIDE,CO2 25.9 mmol/L (21.0-32.0); CHLORIDE,CL 102 mmol/L (98-107); CREATININE 0.76 mg/dL (0.55-1.02); ESTIMATED GFR 90 mL/min (>60); GLUCOSE RANDOM 169 mg/dL (74-100); POTASSIUM,K 4.0 mmol/L (3.5-5.1); PROTEIN TOTAL,TP 9.4 g/dL (6.4-8.2); SODIUM,NA 144 mmol/L (136-145)
[2025-11-03] MEDS: Ondansetron 4 MG/2 ML SDV ONE (09:51)
[2025-11-03] MEDS: Prochlorperazine 10 MG/2 ML SDV IVPUSH ONE (10:04)
[2025-11-03 10:39] LABS: BILIRUBIN TOTAL 0.4 mg/dL (0.0-1.0)
[2025-11-03 10:50] LABS: LACTIC ACID 1.5 mmol/L (0.4-2.0)
[2025-11-03] MEDS: Lactated Ringers 1,000 ML IV SCH ×2 (11:18→21:34)
[2025-11-03] MEDS: Ketorolac 15 MG/ML SDV IVPUSH ONE (12:12)
[2025-11-03 12:48] LABS: APPEARANCE,URINE CLOUDY (CLEAR); GLUCOSE,URINE >=1000 mg/dL (NEGATIVE); OCCULT BLOOD,URINE NEGATIVE (NEGATIVE)
[2025-11-03 12:54] LABS: SQUAMOUS EPITHELIAL CELLS,UR OCCASIONAL /HPF
[2025-11-03] MEDS ORDERED: Sodium Chloride 0.9% 10 ML Syringe FLUSH PRN (13:24)
[2025-11-03] MEDS: Iopamidol 612 MG/ML 100 ML Bottle IV SCH (13:28)
[2025-11-03] MEDS: Sodium Chloride 0.9% 50 ML SDV FLUSH ONE (13:28)
[2025-11-03] MEDS ORDERED: Lactated Ringers 1,000 ML IV SCH (15:00)
[2025-11-03] MEDS: fentaNYL 100 MCG/2 ML SDV IVPUSH ONE ×2 (15:13→20:26)
[2025-11-03 15:33] LABS: LACTIC ACID 0.9 mmol/L (0.4-2.0)
[2025-11-03] MEDS: GI Cocktail Oral Solution 30 ML PO ONE (19:41)
[2025-11-03] MEDS: Bacitracin Oint 1 GM U/D Packet TOP SCH (21:26)
[2025-11-04] MEDS: Ondansetron 4 MG/2 ML SDV IV PRN (02:02)
[2025-11-04] MEDS: fentaNYL 100 MCG/2 ML SDV IVPUSH PRN (02:20)
[2025-11-04] MEDS: Formoterol/Mometasone 100-5 MCG 8.8 GM Inhaler INH SCH (07:37)
[2025-11-04] MEDS: metFORMIN 1,000 MG Tab PO SCH (07:37)
== END 2025-11-04 14:13 | disposition home or self-care (01) | DRG 384 ==
LOC: LB.ED 08:32 → LB.MS 20:23 → UNDOADMIN 22:11
PROVIDERS: ADMIT Surgery; ATTEND Surgery
DX: I10 Essential (primary) hypertension (principal); K27.9 Peptic ulcer, site unspecified, unspecified as acute or chronic, without hemorrhage or perforation; K20.90 Esophagitis, unspecified without bleeding; H54.7 Unspecified visual loss; I11.0 Hypertensive heart disease with heart failure; I50.9 Heart failure, unspecified; E78.00 Pure hypercholesterolemia, unspecified; J45.909 Unspecified asthma, uncomplicated; E11.21 Type 2 diabetes mellitus with diabetic nephropathy; F41.9 Anxiety disorder, unspecified; F32.A Depression, unspecified; F41.0 Panic disorder [episodic paroxysmal anxiety]; G89.29 Other chronic pain; I25.2 Old myocardial infarction; Z85.43 Personal history of malignant neoplasm of ovary; Z90.49 Acquired absence of other specified parts of digestive tract; Z90.710 Acquired absence of both cervix and uterus; Z79.891 Long term (current) use of opiate analgesic; Z79.01 Long term (current) use of anticoagulants; Z79.84 Long term (current) use of oral hypoglycemic drugs; Z79.4 Long term (current) use of insulin; Z79.2 Long term (current) use of antibiotics; Z88.2 Allergy status to sulfonamides; Z88.8 Allergy status to other drugs, medicaments and biological substances; Z91.018 Allergy to other foods; T42.6X5A Adverse effect of other antiepileptic and sedative-hypnotic drugs, initial encounter; Y92.89 Other specified places as the place of occurrence of the external cause
CPT/HCPCS: 36415; 74177; 80053; 81001; 83605; 83690; 84484; 85025; 85379; 86140; 93005; A9270-GY; J0780; J1885; J2270; J2405; J2470; J2550; J2765; J3010; J7120; Q9967

== ENCOUNTER 2025-11-05 09:31 | Emergency (ER) | payer MEDICARE ==
[2025-11-05] MEDS ORDERED: Sodium Chloride 0.9% 10 ML Syringe FLUSH PRN (09:45)
[2025-11-05] MEDS: Ondansetron 4 MG/2 ML SDV IVPUSH ONE (10:00)
[2025-11-05] MEDS: Ondansetron 4 MG/2 ML SDV ONE (10:09)
[2025-11-05] MEDS: Sodium Phosphate,Monobasic/Sodium Phosphate,Dibasic Enema 133 ML Bottle RECTAL ONE (11:25)
[2025-11-05] MEDS: Magnesium Citrate Solution 296 ML Bottle PO ONE (12:39)
== END 2025-11-05 14:50 | disposition home or self-care (01) ==
LOC: LB.ED 09:31
DX: K59.00 Constipation, unspecified (principal); T42.6X5A Adverse effect of other antiepileptic and sedative-hypnotic drugs, initial encounter; I11.0 Hypertensive heart disease with heart failure; I50.9 Heart failure, unspecified; I25.2 Old myocardial infarction; E78.00 Pure hypercholesterolemia, unspecified; E11.9 Type 2 diabetes mellitus without complications; Z91.018 Allergy to other foods; Z88.2 Allergy status to sulfonamides; Z88.8 Allergy status to other drugs, medicaments and biological substances; Z79.899 Other long term (current) drug therapy; Z79.84 Long term (current) use of oral hypoglycemic drugs; Z79.01 Long term (current) use of anticoagulants
CPT/HCPCS: 11042; 96361; 96374; 96375; 99283-25; 99284; A9270-GY; J1171; J2405; J7030